=== PATIENT | female | born 1940 | race Caucasian/White ===

== ENCOUNTER 2021-02-10 14:43 | Emergency (ER) | payer MEDICARE, SELFPAY ==
[2021-02-10 16:18] VITALS: BP 133/79; PULSE 78; RESP 18; TEMP 37.7; O2SAT 95; BMI 25.7
--- NOTE | 2021-02-10 16:42 | XRR_ITS ---
PROCEDURE INFORMATION: Exam: XR Chest Exam date and time: 02/10/2021 4:42 PM Age: 80 years old Clinical indication: Cough; Additional info: Dyspnea/cough TECHNIQUE: Imaging protocol: XR of the chest. Views: 1 view. COMPARISON: No relevant prior studies available. FINDINGS: Limitations: Motion artifact. Lungs: Increased interstitial markings and ground-glass opacities at the bilateral lung peripheries. No focal consolidation. Pleural spaces: No visible pleural effusion or pneumothorax. Heart/Mediastinum: Cardiac silhouette mildly enlarged. Bones/joints: No acute bony abnormality. XR/XR chest 1V portable [id number] IMPRESSION: Image degraded by motion. Increased interstitial markings and ground-glass opacities noted at the lung periphery is, potentially representing chronic interstitial lung disease but with superimposed atypical pneumonia not excluded. Correlate clinically.
--- NOTE | 2021-02-10 18:57 | W.ED.COVID ---
HPI - COVID General: Chief Complaint: COVID symptoms Stated Complaint: Covid + Time Seen by Provider: 02/10/21 18:28 Source: patient Mode of arrival: ambulatory Limitations: no limitations Triage information: Has fever, cough or shortness of breath. Exposure to COVID + person last 14 days History of Present Illness: HPI Narrative: 80-year-old female who is tested positive for Covid on January 29. States she has had increasing dyspnea and fever and body aches over the last 2 days. She states she is just not felt well. Patient's O2 sats 95% currently on room air. Patient has a low-grade fever. She denies any vomiting or diarrhea. She did receive her vaccinations. Denies any worsening improving factors. COVID 19 common symptoms: positive fever(s), non-productive cough, dyspnea and body aches; negative headache(s), throat pain, nausea, vomiting or diarrhea COVID 19 other sytmptoms: negative chest pain COVID Results: No Data to Display Review of Systems Const: Reports: fever(s) and body aches Eyes: Denies: blurry vision or eye discomfort ENMT: Denies: throat pain or dental pain Card: Denies: chest pain Resp: Reports: dyspnea and non-productive cough GI: Denies: abdominal pain, nausea, vomiting or diarrhea : Denies: dysuria Musc: Denies: neck pain or back pain Skin/Breast: Denies: rash Neuro: Denies: headache(s) Psych: Denies: depression Kay[place]/Lymph: Denies: easy bruising All/Imm: Denies: urticaria Physical Exam Const: COMMON NORMALS: no acute distress, patient oriented x3 and healthy appearing HENMT: COMMON NORMALS: normocephalic and atraumatic HEAD & SCALP: normocephalic and atraumatic Eye: COMMON NORMALS: Equal, round and reactive pupils present and EOMs intact bilaterally PUPIL: Yes Equal, round and reactive pupils present Neck/C-Spine: COMMON NORMALS: full ROM and supple Chest: COMMONS NORMALS: normal inspection of the chest and normal palpation of entire chest wall Resp: COMMON NORMALS: normal respiratory effort, No retractions and No use of accessory muscles AUSCULTATION: rales Cardio: COMMON NORMALS: regular rate, regular rhythm and No murmurs present (Cardio) RATE: regular rate RHYTHM: regular rhythm GI: COMMON NORMALS: Normal to inspection, nondistended, normoactive bowel sounds present, Soft to palpation, non-tender and no masses PALPATION: Yes Soft to palpation Extremity: COMMON NORMALS: normal to inspection and full ROM Neuro: COMMON NORMALS: patient oriented x3, moves all extremities and no focal motor deficits Psych: COMMON NORMALS: mental status grossly normal, Normal thought process present and cooperative THOUGHT PROCESS: Normal thought process present Skin: COMMON NORMALS: no rashes or lesions noted and no wounds GENERAL SKIN EXAM: no rashes or lesions noted Course Vital Signs: Vital signs: Vital Signs Temperature 99.9 F H 02/10/21 16:18 Pulse Rate 78 02/10/21 16:18 Respiratory Rate 18 02/10/21 16:18 Blood Pressure 133/79 02/10/21 16:18 Pulse Oximetry 95 02/10/21 16:18 MDM - COVID MDM Narrative: Medical decision making narrative: Patient presents here with Covid pneumonia. X-ray does show some changes but her oxygen level here has been above 95%. She has been well-appearing has no signs upon embolism and no respiratory distress. I did discharge her with a pulse ox and gave her Decadron and albuterol inhaler and prescription albuterol Hailer. Informed her of her pulse ox gets hypoxic she is return immediately. She is understands agrees to plans. Lab Data: Labs: Lab Results 02/10/21 02/10/21 02/10/21 Range/Units 18:53 18:53 18:53 WBC 9.5 (4.0-10.0) 10^3/ uL RBC 4.65 (4.1-5.3) 10^6/u L Hgb 13.5 (11.5-15.3) g/dL Hct 40.2 (37.0-47.0) % MCV 86.5 (81-99) fL MCH 29.0 (28.0-34.0) pg MCHC 33.6 (30.0-36.0) g/dL RDW 14.4 (12.1-15.1) % Plt Count 217 (130-400) 10^3/c mm MPV 11.0 H (7.4-10.4) fL Neut % (Auto) 79.8 % Lymph % (Auto) 15.1 % [place] % (Auto) 4.6 % Eos % (Auto) 0.1 % Baso % (Auto) 0.1 % Neut # (Auto) 7.59 (1.8-7.7) 10^3/u L Lymph # (Auto) 1.4 (0.8-4.8) 10^3/u L [place] # (Auto) 0.4 (0.2-0.9) 10^3/u L Eos # (Auto) 0.0 (0.0-0.8) 10^3/u L Baso # (Auto) 0.0 (0.0-0.1) 10^3/u L Nucleated RBC % (a uto) 0 % Nucleated RBCs # 0.0 /100WBC Sodium 136 (136-145) mmol/L Potassium 3.6 (3.5-5.1) mmol/L Chloride 97 L (98-107) mmol/L Carbon Dioxide 25 (22-29) mmol/L Anion Gap 17.6 (5-19) BUN 19 (8-23) mg/dL Creatinine 0.7 (0.5-0.9) mg/dL GFR Calculation Not Reportable Glucose 106 (65-115) mg/dL Calculated Osmolal ity 285 (285-295) mOsm/k g Lactic Acid 1.3 (0.5-2.2) mmol/L Calcium 8.3 L (8.5-10.5) mg/dL Total Bilirubin 0.5 (0.15-1.2) mg/dL AST 37 H (0-32) U/L ALT 27 (0-33) U/L Alkaline Phosphata se 59 (35-105) IU/L C-Reactive Protein 94.8 H (0.0-4.9) mg/L NT-Pro-B Natriuret Pep 89 (0-450) pg/mL Total Protein 6.8 (6.6-8.7) g/dL Albumin 4.1 (3.5-5.2) g/dL Globulin 2.7 (1.3-4.6) g/dL COVID Results: No Data to Display Discharge Plan Discharge Patient Disposition: Home Clinical Impression: COVID-19 Condition: Stable Prescriptions: New albuterol sulfate 90 mcg/actuation HFA aerosol inhaler 2 inh INHALATION Q6H PRN (Reason: shortness of breath or wheezing) Qty: 8 RF: 0 Discharge Orders: Discharge ED (Routine); Ordered 02/10/21 Ordered By: Amisha Buitrago Discharge Diet: Advance as tolerated Discharge Activity: Resume usual activity Patient Instructions: Upper Respiratory Infection (ED) Coding Level of Care Code ED Director Of Home Health Services for Yossi Fwd Exam Comprehensive
[2021-02-10 18:58] LABS: Basophils % 0.1 %; Eosinophils % 0.1 %; Hematocrit 40.2 % (37.0-47.0); Hemoglobin 13.5 g/dL (11.5-15.3); Lymphocytes # 1.4 10^3/uL (0.8-4.8); Lymphocytes % 15.1 %; Mean Corpuscular HGB Conc 33.6 g/dL (30.0-36.0); Mean Corpuscular Volume 86.5 fL (81-99); Monocytes # 0.4 10^3/uL (0.2-0.9); Monocytes % 4.6 %; Neutrophils # 7.59 10^3/uL (1.8-7.7); Neutrophils % 79.8 %; Nucleated Red Blood Cells % 0 %; Platelet Count 217 10^3/cmm (130-400); Red Blood Count 4.65 10^6/uL (4.1-5.3); Red Cell Distribution Width 14.4 % (12.1-15.1); White Blood Count 9.5 10^3/uL (4.0-10.0)
[2021-02-10 19:30] LABS: Alanine Aminotransferase 27 U/L (0-33); Albumin Level 4.1 g/dL (3.5-5.2); Alkaline Phosphatase 59 IU/L (35-105); Anion Gap 17.6 (5-19); Aspartate Amino Transferase 37 U/L (0-32); Blood Urea Nitrogen 19 mg/dL (8-23); C Reactive Protein 94.8 mg/L (0.0-4.9); Calcium 8.3 mg/dL (8.5-10.5); Carbon Dioxide 25 mmol/L (22-29); Chloride 97 mmol/L (98-107); Globulin 2.7 g/dL (1.3-4.6); Glucose 106 mg/dL (65-115); NT Pro B Type Natriuretic Pept 89 pg/mL (0-450); Osmolality Calculated 285 mOsm/kg (285-295); Potassium 3.6 mmol/L (3.5-5.1); Sodium 136 mmol/L (136-145); Total Bilirubin 0.5 mg/dL (0.15-1.2); Total Protein 6.8 g/dL (6.6-8.7)
[2021-02-10 19:56] LABS: Lactic Sepsis W/Reflex 1.3 mmol/L (0.5-2.2)
[2021-02-10 21:38] VITALS: BP 145/72; PULSE 86; RESP 18; TEMP 36.8; O2SAT 95
== END 2021-02-10 21:40 | disposition home or self-care (01) ==
PROVIDERS: Family Medicine; Emergency Provider Emergency Medicine
DX: U07.1 COVID-19 (principal)
CPT/HCPCS: 71045; 80053; 83605; 83880; 85025; 86140; 99283; J3535